=== PATIENT | male | born 1985 | race American Indian/Alaskan Native ===

== ENCOUNTER 2017-01-01 14:27 | Emergency (ER) | payer OTHER ==
[2017-01-01 14:44] VITALS: RESP 16; TEMP 98.3; O2SAT 98
[2017-01-01] MEDS ORDERED: Bacitracin 500 Units/gm Oint Foilpak UD ONE (15:13)
--- NOTE | 2017-01-01 15:34 | C.PDOC ---
History Of Present Illness 31 yr old male presents to the ER stating 4 days ago he slid while playing basketball and sustained a abrasion to the right lower extremity. Patients tataes over the next few days the wound became progressively red and swollen and past 1 day it has started draining yellow fluids. Patient denies fever, chest pain, SOB, nausea, vomiting, weakness or numbness. Time Seen by Provider: 01/01/17 14:57 Chief Complaint (Nursing): Lower Extremity Problem/Injury History Per: Patient History/Exam Limitations: no limitations Onset/Duration Of Symptoms: Days (4) Current Symptoms Are (Timing): Still Present Pain Scale Rating Of: 4 Recent travel outside of the [place]: No Past Medical History Reviewed: Historical Data, Nursing Documentation, Vital Signs Vital Signs: Last Vital Signs Temp 98.3 F 01/01/17 14:41 Pulse 84 01/01/17 15:45 Resp 16 01/01/17 15:45 BP 124/75 01/01/17 15:45 Pulse Ox 98 01/01/17 15:49 - Medical History PMH: Diabetes - [facility] Procedures TETANUS TOXOID ADMINIST (12/03/13) Family History: States: No Known Family Hx - Social History Hx Tobacco Use: Yes Hx Alcohol Use: Yes Hx Substance Use: No - Immunization History Hx Tetanus Toxoid Vaccination: No Hx Influenza Vaccination: No Hx Pneumococcal Vaccination: No Review Of Systems Except As Marked, All Systems Reviewed And Found Negative. Constitutional: Negative for: Fever Cardiovascular: Negative for: Chest Pain Gastrointestinal: Negative for: Nausea, Vomiting Skin: Positive for: Other ((+) Abrasion on the right lower extremity ) Neurological: Negative for: Weakness, Numbness Physical Exam - Physical Exam Appears: Non-toxic, No Acute Distress Skin: Warm, Dry, No Rash, Other ([id number] abrasion to the anterior right lower extremity, with erythema, mild swelling and scant serous fluid. ) Head: Atraumatic, Normacephalic Eye(s): bilateral: Normal Inspection Oral Mucosa: Moist Neck: Normal ROM, Supple Chest: Symmetrical, No Tenderness Cardiovascular: Rhythm Regular, No Friction Rub, No Murmur Respiratory: Normal Breath Sounds, No Rales, No Rhonchi, No Stridor, No Wheezing Extremity: Normal ROM, No Calf Tenderness, Capillary Refill (< 2 sec) Pulses: Left Dorsalis Pedis: Normal, Right Dorsalis Pedis: Normal Neurological/Psych: Oriented x3, Normal Speech, Normal Motor Gait: Steady ED Course And Treatment O2 Sat by Pulse Oximetry: 98 (RA) Pulse Ox Interpretation: Normal Medical Decision Making Medical Decision Making: PLAN: * Wound Culture Wound was cleansed with sterile saline and bacitracin applied. Disposition - Disposition Referrals: [facility] [Outside] Disposition: HOME/ ROUTINE Disposition Time: 15:32 Condition: GOOD Additional Instructions: clean twice a day with soap and water. Apply bactroban twice a day for the next 2 weeks. Return if worsened. 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 - Scribe Statement The provider has reviewed the documentation as recorded by the Scribe Tiffani Lazaro All medical record entries made by the Scribe were at my direction and personally dictated by me. I have reviewed the chart and agree that the record accurately reflects my personal performance of the history, physical exam, medical decision making, and the department course for this patient. I have also personally directed, reviewed, and agree with the discharge instructions and disposition.
[2017-01-01 15:46] VITALS: BP 124/75; PULSE 84
== END 2017-01-01 15:45 | disposition home or self-care (01) ==
LOC: C.ER 14:27
DX: S80.811A Abrasion, right lower leg, initial encounter (principal); L03.115 Cellulitis of right lower limb; Y93.67 Activity, basketball; X58.XXXA Exposure to other specified factors, initial encounter